=== PATIENT | male | born 1955 | race Caucasian/White ===

== ENCOUNTER 2017-04-27 14:19 | Emergency (ER) | payer SELFPAY ==
[2017-04-27] MEDS ORDERED: ONDANSETRON 4 MG/2 ML VIAL IVP ONE (16:10)
[2017-04-27] MEDS ORDERED: NS 1,000 ML IV ONE ×2 (16:10→18:04)
--- NOTE | 2017-04-27 16:13 | EDPHY ---
H & P Stated Complaint: RUQ PAIN, N/V HPI/ROS: CHIEF COMPLAINT: Right upper quadrant abdominal pain, vomiting HISTORY OF PRESENT ILLNESS: Patient awoke abruptly at 3:00 a.m. with right upper quadrant abdominal pain and nausea. Pain has been constant duration. Moderate to severe. Worse with palpation, movement intake by mouth. He attempted to go to work this morning but could not eat anything. He did drink some water but vomited 2 times. He has had no fever but has felt warm and sweaty. He has no chest pain or shortness of breath. No generalized abdominal pain. Does have a history of abdominal wall hernia but no previous abdominal surgeries or diagnoses. No other associated complaints or modifying factors. other REVIEW OF SYSTEMS: Ten systems reviewed and are negative unless otherwise noted in the HPI PAST MEDICAL HISTORY: Denies any medical history other than known, uncomplicated periumbilical hernia SOCIAL HISTORY: Nonsmoker. Works as a automotive painter helper here in [employer] FAMILY HISTORY: Noncontributory EXAMINATION General Appearance: Alert, no distress Head: normocephalic, atraumatic Eyes: Pupils equal and round, no conjunctival pallor or injection ENT, Mouth: Mucous membranes moist. Airway widely patent Neck: Normal inspection, supple, non-tender Respiratory: Lungs are clear to auscultation. No wheezing, rhonchi or crackles Cardiovascular: Regular rate and rhythm. No murmur. Pulses intact distally. Gastrointestinal: Obese abdomen. Soft and nondistended. There is right upper quadrant tenderness. Positive Abreu. No rigidity. No guarding. No CVA tenderness. Nonacute abdomen. Back: non-tender, no bony abnormalities Neurological: GCS 15. A&O, nonfocal, normal gait Skin: Warm and dry, no rash. No petechia Extremities: Nontender, no pedal edema Psychiatric: Mood and affect normal DIFFERENTIAL DIAGNOSES: Including but not limited to acute cholecystitis, acute cholelithiasis, choledocholithiasis, hepatitis, gastritis, pancreatitis MDM: 4:10 p.m. Right upper quadrant abdominal pain with nausea and vomiting throughout the day. History examination suggest gallbladder etiology. I have ordered laboratory studies, ultrasound of the gallbladder, IV fluid and antiemetic. He is resting comfortably in no acute distress. No active vomiting at this time. No previous abdominal surgeries. 5:35 p.m. Notified by radiologist Dr. Ulrich. Ultrasound does reveal multiple stones but there is no wall thickening or evidence of acute infection. No choledocholithiasis. No biliary obstruction. There is note of a right-sided hydronephrosis of uncertain etiology. Discussed the possibility of further imaging to include CT scan without contrast. 5:45 p.m. I re-evaluated the patient. I have informed him of the findings and of the recommendation of the CT scan without contrast. He has agreed to this. He is feeling significantly better at this time after only IV fluid and Zofran. Vital signs remained stable. No nausea or vomiting. 7:00 p.m. Notified by radiologist Dr. Mcneil. CT scan of the abdomen pelvis reveals moderate hydronephrosis on the right with a 3 mm stone near the UVJ. Also incidental note of pulmonary nodules as documented. I have re-evaluated the patient. He is feeling significantly better. He has minimal pain. He has no nausea. He is comfortable with being discharged home with short course of pain medication. He is instructed to follow up with General surgery regarding the gallstones. He is instructed follow up with Urology regarding the kidney stone. He is to contact his primary care physician and pulmonology to have the pulmonary nodules worked up. He voices understanding of this. He is comfortable with this plan. I have answered all his questions and he is discharged home stable condition. SUPERVISION: Patient was evaluated in conjunction with the supervising physician. Please see their note for details. Source: Patient Exam Limitations: No limitations - Personal History Current Tetanus/Diphtheria Vaccine: Yes Current Tetanus Diphtheria and Acellular Pertussis (TDAP): Yes - Medical/Surgical History Hx Asthma: No Hx Chronic Respiratory Disease: No Hx Diabetes: No Hx Cardiac Disease: No Hx Renal Disease: No Hx Cirrhosis: No Hx Alcoholism: No Hx HIV/AIDS: No Hx Splenectomy or Spleen Trauma: No - Social History Smoking Status: Never smoked Constitutional: Initial Vital Signs Temperature (C) 98.4 F 04/27/17 14:28 Heart Rate 72 04/27/17 14:28 Respiratory Rate 14 04/27/17 14:28 Blood Pressure 150/91 H 04/27/17 14:28 O2 Sat (%) 96 04/27/17 14:28 O2 Delivery Mode Room Air Allergies/Adverse Reactions: Penicillins Allergy (Verified 04/27/17 14:28) Home Medications: Medication Instructions Recorded Ondansetron Odt [Zofran Odt 4 mg 4 mg PO Q6 PRN #12 tab 04/27/17 (*)] oxyCODONE HCL/ACETAMINOPHEN 1 each PO Q4-6PRN PRN #10 tablet 04/27/17 [Percocet 5-325 mg Tablet] Medical Decision Making - Diagnostics Imaging Results: Imaging Impressions Abdomen Ultrasound 04/27/17 16:10 IMPRESSION: 1. Cholelithiasis without cholecystitis or bile duct dilatation. 2. Mild hepatomegaly. 3. Moderate right hydronephrosis of unclear etiology. It may be worthwhile to consider unenhanced CT imaging of the abdomen and pelvis for further assessment , as clinically directed. Findings were discussed with Aubrey Clarke PA-C at 17:35, on 04/27/2017. Abdomen/Pelvis CT 04/27/17 17:38 Impression: 1. Moderate right hydroureteronephrosis, secondary to a 3-mm obstructing calculus in the distal right ureterovesical junction. 2. Nonobstructing left nephrolithiasis. 3. Atherosclerotic aorta without aneurysm. 4. Degenerative spine. 5. Left lower lobe 12-mm and right middle lobe 8-mm nonspecific noncalcified pulmonary nodules, for which follow up initial PET scan and CT imaging are recommended and pulmonary consult. Findings and recommendations discussed with Emergency Department physician, Aubrey Clarke PA-C at 1901 hours on April 27, 2017. Final report concurs with initial preliminary interpretation. Attention: This CT examination is specifically designed to evaluate patients who are clinically suspected of having acute obstructive uropathy. This examination does not use radiographic contrast, and as such, provides only a limited evaluation of the abdomen, pelvis and retroperitoneum. If there is further clinical suspicion for pathological conditions other than obstructive uropathy, a complete CT evaluation of the abdomen and pelvis utilizing intravenous, oral, and rectal contrast should be considered. - Data Points Laboratory Results: Laboratory Results 04/27/17 16:15 04/27/17 16:15 04/27/17 04/27/17 04/27/17 17:43 16:15 16:15 WBC RBC Hgb Hct MCV MCH MCHC RDW Plt Count MPV Neut % (Auto) Lymph % (Auto) Dickinson % (Auto) Eos % (Auto) Baso % (Auto) Nucleat RBC Rel Count Absolute Neuts (auto) Absolute Lymphs (auto) Absolute Monos (auto) Absolute Eos (auto) Absolute Basos (auto) Absolute Nucleated RBC Immature Gran % Immature Gran # PT 12.3 SEC SEC (12.0-15.0) INR 0.92 (0.83-1.16) APTT 23.3 SEC SEC (23.0-38.0) Sodium 144 mEq/L mEq/L (134-144) Potassium 4.3 mEq/L mEq/L (3.5-5.2) Chloride 105 mEq/L mEq/L (97-110) Carbon Dioxide 22 mEq/l mEq/l (22-31) Anion Gap 17 mEq/L H mEq/L (8-16) BUN 28 mg/dL H mg/dL (7-23) Creatinine 1.3 mg/dL mg/dL (0.7-1.3) Estimated GFR 57 Glucose 129 mg/dL H mg/dL (70-100) Calcium 10.4 mg/dL mg/dL (8.5-10.4) Total Bilirubin 0.9 mg/dL mg/dL (0.1-1.4) Conjugated Bilirubin 0.3 mg/dL mg/dL (0.0-0.5) Unconjugated Bilirubin 0.6 mg/dL mg/dL (0.0-1.1) AST 26 IU/L IU/L (17-59) ALT 45 IU/L IU/L (21-72) Alkaline Phosphatase 72 IU/L IU/L (38-126) Total Protein 8.5 g/dL H g/dL (6.3-8.2) Albumin 5.1 g/dL H g/dL (3.5-5.0) Lipase 33.0 IU/L IU/L (23-300) Urine Color YELLOW Urine Appearance CLEAR Urine pH 5.0 (5.0-7.5) Ur Specific [place] 1.024 (1.002-1.030) Urine Protein NEGATIVE (NEGATIVE) Urine Ketones TRACE H (NEGATIVE) Urine Blood NEGATIVE (NEGATIVE) Urine Nitrate NEGATIVE (NEGATIVE) Urine Bilirubin NEGATIVE (NEGATIVE) Urine Urobilinogen NEGATIVE EU EU (0.2-1.0) Ur Leukocyte Esterase NEGATIVE (NEGATIVE) Urine RBC 1-3 /hpf /hpf (0-3) Urine WBC 1-3 /hpf /hpf (0-3) Ur Epithelial Cells NONE SEEN /lpf /lpf (NONE-1+) Urine Mucus TRACE /lpf /lpf (NONE-1+) Urine Glucose NEGATIVE (NEGATIVE) 04/27/17 16:15 WBC 10.78 10^3/uL H 10^3/uL (3.80-9.50) RBC 5.07 10^6/uL 10^6/uL (4.40-6.38) Hgb 16.1 g/dL g/dL (13.7-17.5) Hct 47.2 % % (40.0-51.0) MCV 93.1 fL fL (81.5-99.8) MCH 31.8 pg pg (27.9-34.1) MCHC 34.1 g/dL g/dL (32.4-36.7) RDW 13.7 % % (11.5-15.2) Plt Count 242 10^3/uL 10^3/uL (150-400) MPV 9.6 fL fL (8.7-11.7) Neut % (Auto) 88.6 % H % (39.3-74.2) Lymph % (Auto) 8.0 % L % (15.0-45.0) Dickinson % (Auto) 2.7 % L % (4.5-13.0) Eos % (Auto) 0.0 % L % (0.6-7.6) Baso % (Auto) 0.2 % L % (0.3-1.7) Nucleat RBC Rel Count 0.0 % % (0.0-0.2) Absolute Neuts (auto) 9.56 10^3/uL H 10^3/uL (1.70-6.50) Absolute Lymphs (auto) 0.86 10^3/uL L 10^3/uL (1.00-3.00) Absolute Monos (auto) 0.29 10^3/uL L 10^3/uL (0.30-0.80) Absolute Eos (auto) 0.00 10^3/uL L 10^3/uL (0.03-0.40) Absolute Basos (auto) 0.02 10^3/uL 10^3/uL (0.02-0.10) Absolute Nucleated RBC 0.00 10^3/uL 10^3/uL (0-0.01) Immature Gran % 0.5 % % (0.0-1.1) Immature Gran # 0.05 10^3/uL 10^3/uL (0.00-0.10) PT INR APTT Sodium Potassium Chloride Carbon Dioxide Anion Gap BUN Creatinine Estimated GFR Glucose Calcium Total Bilirubin Conjugated Bilirubin Unconjugated Bilirubin AST ALT Alkaline Phosphatase Total Protein Albumin Lipase Urine Color Urine Appearance Urine pH Ur Specific [place] Urine Protein Urine Ketones Urine Blood Urine Nitrate Urine Bilirubin Urine Urobilinogen Ur Leukocyte Esterase Urine RBC Urine WBC Ur Epithelial Cells Urine Mucus Urine Glucose Medications Given: Discontinued Medications Sodium Chloride (Ns) 1,000 mls @ 0 mls/hr IV ONCE ONE; Wide Open PRN Reason: Protocol Stop: 04/27/17 16:11 Last Admin: 04/27/17 16:34 Dose: 1,000 mls Sodium Chloride (Ns) 1,000 mls @ 0 mls/hr IV ONCE ONE PRN Reason: Wide Open Stop: 04/27/17 18:05 Last Admin: 04/27/17 18:08 Dose: 1,000 mls Ketorolac Tromethamine (Toradol) 30 mg IVP EDNOW ONE Stop: 04/27/17 19:07 Last Admin: 04/27/17 19:25 Dose: 30 mg Ondansetron HCl (Zofran) 8 mg IVP EDNOW ONE Stop: 04/27/17 16:11 Last Admin: 04/27/17 16:34 Dose: 8 mg Departure - Departure Disposition: Home, Routine, Self-Care Clinical Impression: RUQ pain, Ureteral stone with hydronephrosis, Pulmonary nodule seen on imaging study Cholelithiases Qualifiers: Cholelithiasis location: gallbladder Cholecystitis presence: without cholecystitis Biliary obstruction: without biliary obstruction Qualified Code(s) : K80.20 - Calculus of gallbladder without cholecystitis without obstruction Condition: Good Instructions: Biliary Colic (ED), Gallstones (ED), Acute Abdominal Pain (ED) Additional Instructions: 1. Follow up with primary care physician and pulmonology regarding the incidental pulmonary nodules 2. Follow up with General surgery regarding the cholelithiasis 3. Follow up with Urology regarding the ureteral stone 4. Return to the emergency department for any fever, vomiting, worsening pain or difficulty urinating Referrals: Agatha Velez PAC [Primary Care Provider] - As per Instructions Jed Pappas MD [Medical Doctor] - As per Instructions Matthieu Farrell MD [Medical Doctor] - As per Instructions Stand Alone Forms: Work Excuse Prescriptions: Ondansetron Odt [Zofran Odt 4 mg (*)] 4 mg PO Q6 PRN #12 tab PRN Reason: Nausea/Vomiting, Use 1st oxyCODONE HCL/ACETAMINOPHEN [Percocet 5-325 mg Tablet] 1 each PO Q4-6PRN PRN # 10 tablet PRN Reason: Pain, Breakthrough
[2017-04-27 16:28] LABS: % IMMATURE GRANULYOCYTES 0.5 % (0.0-1.1); ABSOLUTE IMMATURE GRANULOCYTES 0.05 10^3/uL (0.00-0.10); ADD DIFF? NO; ADD MORPH? NO; ADD SCAN? NO; ATYPICAL LYMPHOCYTE FLAG 0 (0-99); FRAGMENT RBC FLAG 0 (0-99); HEMATOCRIT 47.2 % (40.0-51.0); HEMOGLOBIN 16.1 g/dL (13.7-17.5); LEFT SHIFT FLG 0 (0-99); LIPEMIA HEMOLYSIS FLAG 90 (0-99); MEAN CELL HEMOGLOBIN 31.8 pg (27.9-34.1); MEAN CELL HEMOGLOBIN CONCENTR. 34.1 g/dL (32.4-36.7); MEAN CELL VOLUME 93.1 fL (81.5-99.8); MEAN PLATELET VOLUME 9.6 fL (8.7-11.7); PLATELET CLUMPS FLAG 10 (0-99); PLATELET COUNT 242 10^3/uL (150-400); RED BLOOD CELL COUNT 5.07 10^6/uL (4.40-6.38); RED CELL DISTRIBUTION WIDTH 13.7 % (11.5-15.2)
[2017-04-27 16:37] LABS: APTT 23.3 SEC (23.0-38.0); INR 0.92 (0.83-1.16); PROTIME(PATIENT) 12.3 SEC (12.0-15.0)
[2017-04-27 16:49] LABS: ALANINE AMINOTRANSFERASE 45 IU/L (21-72); ALBUMIN 5.1 g/dL (3.5-5.0); ALKALINE PHOSPHATASE 72 IU/L (38-126); ANION GAP 17 mEq/L (8-16); ASPARTATE AMINOTRANSFERASE 26 IU/L (17-59); BILIRUBIN,TOTAL 0.9 mg/dL (0.1-1.4); BILIRUBIN-CONJUGATED 0.3 mg/dL (0.0-0.5); BILIRUBIN-UNCONJUGATED 0.6 mg/dL (0.0-1.1); CALCIUM 10.4 mg/dL (8.5-10.4); CARBON DIOXIDE 22 mEq/l (22-31); CHLORIDE 105 mEq/L (97-110); CREATININE 1.3 mg/dL (0.7-1.3); GLOMERULAR FILTRATION RATE 57; GLUCOSE 129 mg/dL (70-100); POTASSIUM 4.3 mEq/L (3.5-5.2); SODIUM 144 mEq/L (134-144); TOTAL PROTEIN 8.5 g/dL (6.3-8.2)
[2017-04-27 18:03] LABS: COLOR YELLOW; LEUKOCYTE ESTERASE,URINE NEGATIVE (NEGATIVE); NITRITE,URINE NEGATIVE (NEGATIVE)
[2017-04-27 18:07] LABS: MUCUS TRACE /lpf (NONE-1+)
[2017-04-27 19:06] VITALS: BP 148/83; RESP 16; TEMP 99.5
[2017-04-27] MEDS ORDERED: KETOROLAC 30 MG/1 ML SDV IVP ONE (19:06)
[2017-04-27 19:38] VITALS: PULSE 73; O2SAT 92
== END 2017-04-27 19:37 | disposition home or self-care (01) ==
DX: K80.20 Calculus of gallbladder without cholecystitis without obstruction (principal); R91.1 Solitary pulmonary nodule; N20.1 Calculus of ureter; N13.30 Unspecified hydronephrosis; R79.1 Abnormal coagulation profile
CPT/HCPCS: 96374; J1885; J2405